=== PATIENT | female | born 1960 | race Caucasian/White ===

== ENCOUNTER 2021-02-14 21:47 | Emergency (ER) | payer OTHER ==
[~2021-02-14] VITALS: Ht 144.8 cm; Wt 56.7 kg
[2021-02-14 22:22] VITALS: BP 198/100
== END 2021-02-14 22:27 | disposition home or self-care (01) ==
LOC: ER 21:47
DX: Z20.822 Contact with and (suspected) exposure to COVID-19 (principal)